=== PATIENT | male | born 1975 | race Caucasian/White ===

== ENCOUNTER 2023-12-13 18:18 | Emergency (ER) | payer OTHER ==
[~2023-12-13] VITALS: Ht 175.3 cm; Wt 81.6 kg
[2023-12-13 18:22] VITALS: BP_SYST 145; PULSE 85; RESP 18; TEMP 98.3; O2SAT 98
[2023-12-13] MEDS ORDERED: NAPR-1069 PO (19:05)
[2023-12-13 19:19] VITALS: BP_SYST 145; PULSE 85; RESP 18; TEMP 98.3; O2SAT 98
== END 2023-12-13 19:09 | disposition home or self-care (01) ==
LOC: SED 18:18
DX: K40.90 Unilateral inguinal hernia, without obstruction or gangrene, not specified as recurrent (principal); Z79.899 Other long term (current) drug therapy
CPT/HCPCS: 99282